=== PATIENT | female | born 1985 | race Caucasian/White ===

== ENCOUNTER 2022-05-30 23:08 | Emergency (ER) | payer MEDICAID ==
[~2022-05-30] VITALS: Ht 165.1 cm; Wt 59.9 kg
[2022-05-31] MEDS ORDERED: CYCLOBENZAPRINE10 MG PO (01:27)
[2022-05-31] MEDS ORDERED: PREDNISONE20 MG PO (01:27)
== END 2022-05-31 01:52 | disposition home or self-care (01) ==
LOC: ED 23:08
DX: M54.16 Radiculopathy, lumbar region (principal); Z91.040 Latex allergy status
CPT/HCPCS: 72131; 73502; 84703; 96372; 99284-25; J1885